=== PATIENT | female | born 2000 | race Caucasian/White ===

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

== ENCOUNTER 2021-04-17 10:34 | Emergency (ER) | payer BC, MEDICAID ==
[~2021-04-17] VITALS: Ht 165.1 cm; Wt 100.0 kg
[2021-04-17 10:41] VITALS: BP 138/64
[2021-04-17 11:13] LABS: APPEARANCE, URINE CLEAR (CLEAR); BACTERIA, URINE AUTO NEGATIVE (NEGATIVE); BILIRUBIN, URINE AUTO NEGATIVE (NEGATIVE); BLOOD, URINE BLOOD NEGATIVE (NEGATIVE); COLOR, URINE YELLOW (YELLOW); GLUCOSE, URINE (UA) AUTO NEGATIVE (NEGATIVE); KETONE, URINE AUTO NEGATIVE (NEGATIVE); LEUKOCYTE ESTERASE, URINE AUTO NEGATIVE (NEGATIVE); NITRITE, URINE AUTO NEGATIVE (NEGATIVE); PROTEIN, URINE AUTO NEGATIVE (NEGATIVE); RBC, URINE AUTO 0 /HPF (0-3); SPECIFIC GRAVITY URINE AUTO 1.017 (1.002-1.035); SQUAMOUS EPITHELIAL CELL UR AU 3 /HPF (0-6); UROBILINOGEN, URINE AUTO 0.2 mg/dL (0.0-2.0); WBC, URINE AUTO 1 /HPF (0-3)
[2021-04-17 11:20] LABS: BASO # 0.1 10^3/uL (0.0-0.2); BASO % 0.6 % (0.0-1.0); EOS # 0.1 10^3/uL (0.0-0.5); EOS % 0.6 % (0.0-3.0); HEMATOCRIT 41.1 % (36.0-47.0); HEMOGLOBIN 13.1 g/dl (12.0-15.5); LYMPH # 1.9 10^3/uL (1.5-5.0); MEAN CORPUSCULAR HEMOGLOBIN 27.8 pg (27.0-33.0); MEAN CORPUSCULAR HGB CONC 31.9 g/dl (32.0-36.5); MEAN CORPUSCULAR VOLUME 87.1 fl (80.0-96.0); MONO # 0.6 10^3/uL (0.0-0.8); MONO % 5.4 % (2.0-8.0); NEUTROPHILS # 8.1 10^3/uL (1.5-8.5); NEUTROPHILS % 74.9 % (36.0-66.0); PLATELET COUNT, AUTOMATED 345 10^3/uL (150-450); RED BLOOD COUNT 4.72 10^6/uL (4.00-5.40); WHITE BLOOD COUNT 10.8 10^3/uL (4.0-10.0)
--- NOTE | 2021-04-17 12:13 | REP ---
INDICATION: RLQ pain/ r/o ectopic COMPARISON: None. TECHNIQUE: Transabdominal 1st trimester obstetrical ultrasound with color Doppler evaluation. FINDINGS: Anteverted uterus measures 7.3 x 3.8 x 4.5 cm along with a small amount of endocervical fluid and empty cystic structure without definable yolk sac or pole. Mean sac diameter corresponds to 5 weeks 0 days gestational age. Bilateral maternal ovaries are normal in appearance and vascularity without torsion. Right ovary measures 3.2 x 1.6 x 1.9 cm (RI 0.43). Left ovary measures 2.4 x 1.5 x 1.1 cm (RI 0.45). No pelvic free fluid. Bladder is unremarkable and measures 6.7 x 3.2 x 2.1 cm. IMPRESSION: 1. Endocervical fluid and empty cystic structure. Differential diagnosis includes blighted ovum/spontaneous in progress versus early . Correlation with serial HCG levels are recommended. <Electronically signed by Alan Johnson > 04/17/21 [id number]
== END 2021-04-17 12:34 | disposition home or self-care (01) ==
LOC: M ED 10:34
DX: O99.891 Other specified diseases and conditions complicating pregnancy (principal); R11.0 Nausea; Z3A.01 Less than 8 weeks gestation of pregnancy; Z83.3 Family history of diabetes mellitus; Z83.6 Family history of other diseases of the respiratory system

== ENCOUNTER → 2021-04-19 | Outpatient (CLI) | payer BC, MEDICAID | LOC: M LAB 08:41 | PROVIDERS: ATTEND Emergency Medicine | DX: O26.891 Other specified pregnancy related conditions, first trimester (principal); R10.9 Unspecified abdominal pain ==

== ENCOUNTER 2022-01-29 12:15 | Emergency (ER) | payer BC, MEDICAID ==
[~2022-01-29] VITALS: Ht 162.6 cm; Wt 108.1 kg
[2022-01-29] MEDS ORDERED: FERR325T19 PO (12:24)
[2022-01-29 12:47] LABS: BASO % 0.5 % (0.0-1.0); EOS # 0.2 10^3/uL (0.0-0.5); EOS % 1.8 % (0.0-3.0); HEMATOCRIT 41.7 % (36.0-47.0); HEMOGLOBIN 12.8 g/dl (12.0-15.5); LYMPH % 22.9 % (24.0-44.0); MEAN CORPUSCULAR HEMOGLOBIN 24.6 pg (27.0-33.0); MEAN CORPUSCULAR HGB CONC 30.7 g/dl (32.0-36.5); MEAN CORPUSCULAR VOLUME 80.2 fl (80.0-96.0); MONO # 0.5 10^3/uL (0.0-0.8); MONO % 5.7 % (2.0-8.0); NEUTROPHILS % 68.9 % (36.0-66.0); PLATELET COUNT, AUTOMATED 415 10^3/uL (150-450); WHITE BLOOD COUNT 8.8 10^3/uL (4.0-10.0)
[2022-01-29] MEDS ORDERED: ONDANSETRON 4MG ORAL DISINTEGRATING TAB PO ONE (12:50)
[2022-01-29 12:53] VITALS: BP 109/68
[2022-01-29 13:32] LABS: BLOOD UREA NITROGEN 13 MG/DL (7-18); CALCIUM LEVEL 9.5 MG/DL (8.5-10.1); CARBON DIOXIDE LEVEL 26 MEQ/L (21-32); CHLORIDE LEVEL 109 MEQ/L (98-107); CREATININE FOR GFR 0.85 MG/DL (0.55-1.30); GLUCOSE, FASTING 65 MG/DL (70-100); HCG, SERUM QUANTITATIVE < 1.0 MIU/ML; POTASSIUM SERUM 4.3 MEQ/L (3.5-5.1); SODIUM LEVEL 140 MEQ/L (136-145)
== END 2022-01-29 15:50 | disposition home or self-care (01) ==
LOC: M ED 12:15
DX: O72.2 Delayed and secondary postpartum hemorrhage (principal)

== ENCOUNTER 2022-05-05 16:48 | Emergency (ER) | payer BC, MEDICAID ==
[~2022-05-05] VITALS: Ht 165.1 cm; Wt 112.7 kg
[~2022-05-05 16:48] MED LIST: FERR325T19 PO
[2022-05-05 16:49] VITALS: BP 135/84
[2022-05-05] MEDS ORDERED: LIDOCAINE 1% MDV 20ML VIAL SC ONE (17:15)
[2022-05-05] MEDS ORDERED: BOOSTRIX/ADACEL VACCINE (DIPHTH/PERTUSS/ACELL/TETANUS) 0.5ML SYR IM ONE (17:25)
[2022-05-05] MEDS ORDERED: CIPR-249 PO (19:20)
== END 2022-05-05 19:42 | disposition home or self-care (01) ==
LOC: M ED 16:48
DX: S91.312A Laceration without foreign body, left foot, initial encounter (principal); S91.332A Puncture wound without foreign body, left foot, initial encounter; W22.8XXA Striking against or struck by other objects, initial encounter; Y92.099 Unspecified place in other non-institutional residence as the place of occurrence of the external cause; Z79.899 Other long term (current) drug therapy

== ENCOUNTER 2022-06-03 14:51 | Emergency (ER) | payer BC, MEDICAID ==
[~2022-06-03] VITALS: Ht 165.1 cm; Wt 109.2 kg
[~2022-06-03 14:51] MED LIST changes: +CIPR-249 PO
[2022-06-03] MEDS ORDERED: NS 1,000 ML IV ONE (16:55)
[2022-06-03] MEDS ORDERED: ONDANSETRON 4MG 2ML VIAL IV ONE (16:55)
[2022-06-03 17:01] VITALS: BP 119/58
[2022-06-03 17:33] LABS: BASO # 0.1 10^3/uL (0.0-0.2); BASO % 0.5 % (0.0-1.0); EOS % 0.2 % (0.0-3.0); HEMATOCRIT 37.1 % (36.0-47.0); LYMPH # 1.7 10^3/uL (1.5-5.0); LYMPH % 15.6 % (24.0-44.0); MEAN CORPUSCULAR HEMOGLOBIN 25.6 pg (27.0-33.0); MEAN CORPUSCULAR HGB CONC 32.3 g/dl (32.0-36.5); MEAN CORPUSCULAR VOLUME 79.1 fl (80.0-96.0); MONO # 0.5 10^3/uL (0.0-0.8); MONO % 4.6 % (2.0-8.0); NEUTROPHILS # 8.4 10^3/uL (1.5-8.5); NEUTROPHILS % 78.8 % (36.0-66.0); PLATELET COUNT, AUTOMATED 358 10^3/uL (150-450); RED BLOOD COUNT 4.69 10^6/uL (4.00-5.40); WHITE BLOOD COUNT 10.6 10^3/uL (4.0-10.0)
[2022-06-03 19:59] LABS: ALBUMIN 3.1 GM/DL (3.2-5.2); ALT/SGPT 47 U/L (12-78); BILIRUBIN,DIRECT 0.2 MG/DL (0.0-0.2); BILIRUBIN,TOTAL 0.4 MG/DL (0.2-1.0); BLOOD UREA NITROGEN 9 MG/DL (7-18); CALCIUM LEVEL 9.1 MG/DL (8.5-10.1); CARBON DIOXIDE LEVEL 21 MEQ/L (21-32); CHLORIDE LEVEL 107 MEQ/L (98-107); CREATININE FOR GFR 0.52 MG/DL (0.55-1.30); GLUCOSE, FASTING 70 MG/DL (70-100); HCG, SERUM QUANTITATIVE 123078 MIU/ML; POTASSIUM SERUM 4.1 MEQ/L (3.5-5.1); SODIUM LEVEL 138 MEQ/L (136-145); TOTAL PROTEIN 6.4 GM/DL (6.4-8.2)
[2022-06-03] MEDS ORDERED: ONDA4TAB6 PO (20:44)
== END 2022-06-03 21:15 | disposition home or self-care (01) ==
LOC: M ED 14:51
DX: O21.9 Vomiting of pregnancy, unspecified (principal)
CPT/HCPCS: 80048; 80076; 81001; 84702; 85025; 96361; 96374; 99284; J2405

== ENCOUNTER → 2022-06-07 | Outpatient (CLI) | payer BC, MEDICAID ==
[~2022-06-07] MED LIST changes: +ONDA4TAB6 PO
== END ==
LOC: M WHC 11:06
PROVIDERS: ATTEND Obstetrics & Gynecology
DX: Z34.90 Encounter for supervision of normal pregnancy, unspecified, unspecified trimester (principal); Z53.9 Procedure and treatment not carried out, unspecified reason

== ENCOUNTER → 2022-06-07 | Outpatient (CLI) | payer BC, MEDICAID ==
[2022-06-07 14:06] LABS: BASO % 0.3 % (0.0-1.0); EOS # 0.1 10^3/uL (0.0-0.5); EOS % 0.6 % (0.0-3.0); HEMATOCRIT 38.5 % (36.0-47.0); LYMPH # 1.8 10^3/uL (1.5-5.0); MEAN CORPUSCULAR HEMOGLOBIN 25.1 pg (27.0-33.0); MEAN CORPUSCULAR HGB CONC 31.2 g/dl (32.0-36.5); MEAN CORPUSCULAR VOLUME 80.4 fl (80.0-96.0); MONO # 0.6 10^3/uL (0.0-0.8); MONO % 4.6 % (2.0-8.0); PLATELET COUNT, AUTOMATED 370 10^3/uL (150-450); RED BLOOD COUNT 4.79 10^6/uL (4.00-5.40); WHITE BLOOD COUNT 12.5 10^3/uL (4.0-10.0)
[2022-06-07 15:23] LABS: HEPATITIS C VIRUS ABY INDEX 0.1 INDEX (<0.8); HIV 1&2 SCREEN CENTAUR NEGATIVE (NEGATIVE)
[2022-06-07 15:36] LABS: GC DNA AMPLIFICATION NEGATIVE (NEGATIVE)
== END ==
LOC: M PLALAB 11:48
PROVIDERS: ATTEND Obstetrics & Gynecology
DX: Z34.90 Encounter for supervision of normal pregnancy, unspecified, unspecified trimester (principal)

== ENCOUNTER → 2022-06-28 | Outpatient (CLI) | payer BC, MEDICAID ==
[2022-06-28 15:19] LABS: HEMATOCRIT 38.7 % (36.0-47.0); HEMOGLOBIN 12.5 g/dl (12.0-15.5); MEAN CORPUSCULAR HEMOGLOBIN 25.9 pg (27.0-33.0); MEAN CORPUSCULAR HGB CONC 32.3 g/dl (32.0-36.5); MEAN CORPUSCULAR VOLUME 80.1 fl (80.0-96.0); PLATELET COUNT, AUTOMATED 340 10^3/uL (150-450); RED BLOOD COUNT 4.83 10^6/uL (4.00-5.40); WHITE BLOOD COUNT 11.5 10^3/uL (4.0-10.0)
== END ==
LOC: M PLALAB 12:41
PROVIDERS: ATTEND Obstetrics & Gynecology
DX: Z34.81 Encounter for supervision of other normal pregnancy, first trimester (principal); Z36.89 Encounter for other specified antenatal screening

== ENCOUNTER → 2022-07-06 | Outpatient (CLI) | payer BC, MEDICAID | LOC: M WHC 14:59 | PROVIDERS: ATTEND Obstetrics & Gynecology | DX: O30.001 Twin pregnancy, unspecified number of placenta and unspecified number of amniotic sacs, first trimester (principal); Z3A.12 12 weeks gestation of pregnancy ==

== ENCOUNTER → 2022-09-02 | Outpatient (CLI) | payer BC, MEDICAID, SELFPAY | LOC: M WHC 07:02 | PROVIDERS: ATTEND Advanced Practice Midwife | DX: O30.042 Twin pregnancy, dichorionic/diamniotic, second trimester (principal); Z3A.21 21 weeks gestation of pregnancy; O32.1XX1 Maternal care for breech presentation, fetus 1; O32.1XX2 Maternal care for breech presentation, fetus 2 ==

== ENCOUNTER → 2022-11-18 | Outpatient (CLI) | payer OTHER | LOC: M WHC 12:28 | PROVIDERS: ATTEND Advanced Practice Midwife | DX: O30.043 Twin pregnancy, dichorionic/diamniotic, third trimester (principal); Z3A.32 32 weeks gestation of pregnancy ==

== ENCOUNTER → 2022-11-18 | Outpatient (CLI) | payer OTHER ==
[2022-11-18 15:51] LABS: HEMATOCRIT 31.3 % (36.0-47.0); HEMOGLOBIN 9.3 g/dl (12.0-15.5); MEAN CORPUSCULAR HEMOGLOBIN 23.7 pg (27.0-33.0); MEAN CORPUSCULAR HGB CONC 29.7 g/dl (32.0-36.5); MEAN CORPUSCULAR VOLUME 79.6 fl (80.0-96.0); PLATELET COUNT, AUTOMATED 321 10^3/uL (150-450); RED BLOOD COUNT 3.93 10^6/uL (4.00-5.40)
== END ==
LOC: M PLALAB 12:32
PROVIDERS: ATTEND Specialist
DX: O30.042 Twin pregnancy, dichorionic/diamniotic, second trimester (principal)

== ENCOUNTER → 2022-12-07 | Outpatient (REF) | payer OTHER, MEDICAID ==
[~2022-12-07] MED LIST changes: +ALBU8.5H; +COLA100C5 PO; +IBUP80TA PO; +PERCOCET PO
== END ==
LOC: M PLALAB 11:21
PROVIDERS: ATTEND Advanced Practice Midwife
DX: O30.043 Twin pregnancy, dichorionic/diamniotic, third trimester (principal); N90.89 Other specified noninflammatory disorders of vulva and perineum

== ENCOUNTER 2022-12-12 10:02 | Outpatient (CLI) | payer OTHER, MEDICAID ==
[~2022-12-12 10:02] MED LIST changes: -ALBU8.5H; -COLA100C5 PO; -IBUP80TA PO; +IRON SUCROSE 500 MG in NS 250 ML OVER 4 HRS IV ONE; -PERCOCET PO
[2022-12-12 10:15] VITALS: BP 142/83
[2022-12-12 12:00] VITALS: BP 134/68
[2022-12-12 13:00] VITALS: BP 141/63
[2022-12-12 14:00] VITALS: BP 128/60
[2022-12-12 14:54] VITALS: BP 143/81
[2022-12-22] MEDS ORDERED: FERR325T19 PO (10:38)
[2022-12-22] MEDS ORDERED: ALBU8.5H (10:41)
[2022-12-26] MEDS ORDERED: IBUP80TA PO (12:33)
[2022-12-26] MEDS ORDERED: COLA100C5 PO (12:33)
[2022-12-26] MEDS ORDERED: PERCOCET PO (12:33)
== END 2022-12-12 14:55 | disposition home or self-care (01) ==
LOC: M INFU 10:02
PROVIDERS: ATTEND Advanced Practice Midwife
DX: F64.9 Gender identity disorder, unspecified (principal)
CPT/HCPCS: 96365; 96366; J1756

== ENCOUNTER → 2022-12-16 | Outpatient (CLI) | payer OTHER, MEDICAID ==
[~2022-12-16] MED LIST changes: +ALBU8.5H; +COLA100C5 PO; +IBUP80TA PO; -IRON SUCROSE 500 MG in NS 250 ML OVER 4 HRS IV ONE; +PERCOCET PO
== END ==
LOC: M WHC 12:11
PROVIDERS: ATTEND Advanced Practice Midwife
DX: O30.043 Twin pregnancy, dichorionic/diamniotic, third trimester (principal); Z3A.36 36 weeks gestation of pregnancy

== ENCOUNTER → 2022-12-21 | Outpatient (CLI) | payer OTHER, MEDICAID | LOC: M LABSMTC 10:49 | PROVIDERS: ATTEND Anesthesiology | DX: Z01.812 Encounter for preprocedural laboratory examination (principal); Z20.822 Contact with and (suspected) exposure to COVID-19 ==

== ENCOUNTER 2023-03-30 12:32 | Emergency (ER) | payer MEDICAID, OTHER ==
[~2023-03-30] VITALS: Ht 162.6 cm; Wt 112.4 kg
[2023-03-30 12:33] VITALS: BP 121/75
== END 2023-03-30 12:48 | disposition left against medical advice (07) ==
LOC: M ED 12:32
DX: Z53.21 Procedure and treatment not carried out due to patient leaving prior to being seen by health care provider (principal)

== ENCOUNTER → 2023-08-03 | Outpatient (REF) | payer OTHER, MEDICAID | LOC: M LAB REF 17:52 | PROVIDERS: ATTEND Internal Medicine Endocrinology, Diabetes & Metabolism | DX: E04.1 Nontoxic single thyroid nodule (principal) ==